=== PATIENT | male | born 1945 | race African-American/Black ===

== ENCOUNTER 2020-10-20 21:17 | Emergency (ER) | payer OTHER ==
[~2020-10-20] VITALS: Ht 172.7 cm; Wt 120.2 kg
[2020-10-20 21:23] VITALS: BP 141/83
--- NOTE | 2020-10-20 21:30 | NUR ---
PATIENT BIB SELF FOR C/O SORE THROAT X 4 DAYS. PATIENT STATES RECIVED MODERNA (1RST SHOT) AND WAS WORRIED IT COULD BE RELATED TO SORE THROAT. THROAT HAS SOME REDNESS IN THE BACK OF THE THROAT AND HAS PAIN UPON PALPATION OF THE NECK. PATIENT CLAIMS PAINFUL SWALLOWING. PMH: HYPERTENSION, DIABETES
--- NOTE | 2020-10-20 21:50 | NUR ---
PATIENT RESTING. TALKING TO ON THE PHONE. LAYING ON THE BACK. NO ACUTE DISTRESS NOTED FOR PATIENT.
[2020-10-20] MEDS ORDERED: DEXAMETHASONE 10 MG/ML VIAL IM ONE (22:15)
[2020-10-20] MEDS ORDERED: LIDOCAINE VISCOUS 2% 20 ML UDC PO ONE (22:15)
[2020-10-20] MEDS ORDERED: AMOXIL/CLAVULANATE 875/125 MG 1 TAB PO ONE (22:15)
[2020-10-20] MEDS ORDERED: LIDO100S MM (22:17)
[2020-10-20] MEDS ORDERED: AMOX-1000 PO (22:17)
[2020-10-20] MEDS ORDERED: IBUP-1842 PO (22:17)
[2020-10-20 22:40] VITALS: BP 139/61
--- NOTE | 2020-10-20 22:40 | NUR ---
Patient discharged with v/s stable. Written and verbal after care instructions given and explained. Patient alert, oriented and verbalized understanding of instructions. Ambulatory with steady gait. All questions addressed prior to discharge. ID band removed. Patient advised to follow up with PMD. Rx of MOTRIN, AUGMENTIN, LIDOCAINE HCL VISCOUS given. Patient educated on indication of medication including possible reaction and side effects. Opportunity to ask questions provided and answered.
== END 2020-10-20 22:40 | disposition home or self-care (01) ==
LOC: MED 21:17
DX: J02.0 Streptococcal pharyngitis (principal); F17.210 Nicotine dependence, cigarettes, uncomplicated
CPT/HCPCS: 96372; 99283; J1100